=== PATIENT | female | born 1980 | race Caucasian/White ===

== ENCOUNTER 2018-06-12 07:34 | Emergency (ER) | payer OTHER, SELFPAY ==
--- NOTE | 2018-06-12 08:52 | RAD ---
3 VIEWS LEFT FOOT: Date: 06/12/18 HISTORY: Left foot pain. FINDINGS: There is a tiny osseous density seen just anterior to the anterior process of the talus. However, thi s tiny osseous density does appear to be corticated and is not thought to represent an acute avulsion injury. No additional fracture is seen and there is no dislocation. Lisfranc joint is normally align ed. Accessory center of ossification is seen adjacent to the cuboid bone. IMPRESSION: No acute osseous abnormality. POS: ANTONIO
--- NOTE | 2018-06-12 08:54 | RAD ---
3 VIEWS LEFT ANKLE: Date: 06/12/18 HISTORY: Left foot and ankle pain. FINDINGS: As noted on views of the foot, there is a tiny osseous density dorsal to the anterior process of the talus, which does appear corticated and may represent a remote avulsion-type injury. There is no evid ence of an acute fracture or dislocation. The ankle mortise is congruent. No other osseous abnormalit y. IMPRESSION: No acute osseous abnormality of the left ankle. POS: ZHAO
== END 2018-06-12 08:53 | disposition home or self-care (01) ==
LOC: ERS 07:34
DX: M79.605 Pain in left leg (principal); F32.9 Major depressive disorder, single episode, unspecified; Z79.899 Other long term (current) drug therapy; Z87.891 Personal history of nicotine dependence

== ENCOUNTER 2018-12-07 11:27 | Emergency (ER) | payer SELFPAY ==
[2018-12-07 11:52] LABS: #Eosinphils 0.1 thou/uL (0.0-0.7); #Lymphocytes 2.8 thou/uL (1.20-3.40); #Monocytes 0.4 thou/uL (0.11-0.59); #Neutrophils 3.6 thou/uL (1.40-6.50); %Basophils 0.6 % (0.0-1.0); %Eosinophils 1.1 % (0.0-10.0); %Lymphocytes 40.1 % (21.0-51.0); %Monocytes 5.8 % (0.0-10.0); %Neutrophils 52.3 % (42.0-75.0); Hemoglobin 15.8 g/dL (12.0-16.0); Mean Corpuscular HGB CONC 35.1 g/dL (32.0-36.0); Mean Corpuscular Hemoglobin 32.5 pg (27.0-31.0); Mean Corpuscular Volume 92.5 fL (78.0-98.0); Mean Platelet Volume 7.9 fL (7.4-10.4); Platelet Count 284 thou/uL (130-400); Red Blood Cell (RBC) Count 4.87 mill/uL (4.20-5.40); White Blood Cell (WBC) Count 6.9 thou/uL (4.8-10.8)
--- NOTE | 2018-12-07 11:57 | RAD ---
AP view chest. HISTORY: Chest pain. AP view chest is obtained on 12/07/2018. The lungs are well aerated. No evidence of active intrathoracic disease seen. No evidence of effusion s, pneumonia or pneumothorax seen IMPRESSION: Unremarkable AP view chest.
[2018-12-07 12:18] LABS: ALT (SGPT) 13 U/L (8-55); AST (SGOT) 17 U/L (5-34); Albumin 4.6 g/dL (3.5-5.0); Alkaline Phosphatase 77 U/L (40-150); Anion Gap 12 mmol/L (10-20); BUN (Urea Nitrogen) 10 mg/dL (7.0-18.7); Bilirubin, Total 0.7 mg/dL (0.2-1.2); Calc. Creatinine Clearance 0 mL/min (70-130); Carbon Dioxide 24 mmol/L (22-29); Chloride 104 mmol/L (98-107); Estimated GFR-MDRD 54; Globulin 2.8 g/dL (2.4-3.5); Glucose 81 mg/dL (70-105); Lipase 21 U/L (8-78); Protein, Total 7.4 g/dL (6.0-8.3); Sodium 136 mmol/L (136-145)
[2018-12-07] MEDS ORDERED: Lorazepam 2 MG/ML VIAL ONE (12:26)
== END 2018-12-07 13:25 | disposition home or self-care (01) ==
LOC: ERS 11:27
DX: R07.89 Other chest pain (principal); I10 Essential (primary) hypertension; K21.9 Gastro-esophageal reflux disease without esophagitis; Z87.891 Personal history of nicotine dependence; Z79.899 Other long term (current) drug therapy
CPT/HCPCS: 36415; 71045; 80053; 83605; 83690; 84484; 85025; 93005; 96374; J2060

== ENCOUNTER 2022-01-18 17:15 | Emergency (ER) | payer SELFPAY ==
[2022-01-18] MEDS ORDERED: Famotidine/PF 20 mg/2ml Vial ONE (17:37)
[2022-01-18] MEDS ORDERED: diphenhydrAMINE 50 MG/ML VIAL ONE (17:37)
[2022-01-18 18:05] LABS: Hemoglobin 15.2 g/dL (12.0-16.0); Mean Corpuscular HGB CONC 33.5 g/dL (32.0-36.0); Mean Corpuscular Hemoglobin 32.2 pg (27.0-31.0); Mean Corpuscular Volume 96.1 fL (78.0-98.0); Platelet Count 270 thou/uL (130-400); RBC Distribution Width 12.2 % (11.5-14.5); Red Blood Cell (RBC) Count 4.73 mill/uL (4.20-5.40); White Blood Cell (WBC) Count 7.7 thou/uL (4.8-10.8)
[2022-01-18 18:15] LABS: ALT (SGPT) 10 U/L (8-55); AST (SGOT) 19 U/L (5-34); Alkaline Phosphatase 71 U/L (40-110); Anion Gap 15 mmol/L (10-20); BUN (Urea Nitrogen) 12 mg/dL (7.0-18.7); Bilirubin, Total 0.6 mg/dL (0.2-1.2); Calc. Creatinine Clearance 0 mL/min (70-130); Carbon Dioxide 23 mmol/L (22-29); Chloride 103 mmol/L (98-107); Globulin 2.6 g/dL (2.4-3.5); Glucose 90 mg/dL (70-105); Potassium 3.8 mmol/L (3.5-5.1); Protein, Total 6.6 g/dL (6.0-8.3); Sodium 137 mmol/L (136-145)
[2022-01-18 18:39] LABS: Eosinophils 2 % (0-10); Lymphocytes 23 % (21-51); MDiff Complete? YES; Monocytes 4 % (0-10); Neutrophil 69 % (42-75); Platelet Morphology Comment Appears Adequate; Polychromasia SLIGHT = 2-3 cells (100X) (0-2/hpf); Reactive Lymphocytes 2 % (0-10)
== END 2022-01-18 19:16 | disposition home or self-care (01) ==
LOC: ERS 17:15
DX: T63.441A Toxic effect of venom of bees, accidental (unintentional), initial encounter (principal); R07.89 Other chest pain; Z87.891 Personal history of nicotine dependence; I10 Essential (primary) hypertension; Z79.899 Other long term (current) drug therapy; K21.9 Gastro-esophageal reflux disease without esophagitis
CPT/HCPCS: 36415; 71045; 80053; 84484; 85025; 93005; 96374; 96375; J1200; S0028

== ENCOUNTER 2022-06-01 16:09 | Emergency (ER) | payer SELFPAY ==
[2022-06-01] MEDS ORDERED: Ketorolac Tromethamine 30 MG/ML VIAL ONE (16:37)
== END 2022-06-01 17:28 | disposition home or self-care (01) ==
LOC: ERS 16:09
DX: S63.501A Unspecified sprain of right wrist, initial encounter (principal); S60.221A Contusion of right hand, initial encounter; I10 Essential (primary) hypertension; K21.9 Gastro-esophageal reflux disease without esophagitis; W22.8XXA Striking against or struck by other objects, initial encounter; Z87.891 Personal history of nicotine dependence; Z79.899 Other long term (current) drug therapy
CPT/HCPCS: 96372; J1885

== ENCOUNTER 2023-06-26 04:33 | Emergency (ER) | payer SELFPAY ==
[2023-06-26] MEDS ORDERED: Ondansetron PF 4 MG/2 ML Vial ONE (05:35)
[2023-06-26] MEDS ORDERED: Ketorolac Tromethamine 30 MG/ML VIAL ONE (05:35)
[2023-06-26 06:14] LABS: Bilirubin Negative (Negative); Blood, Urine 2+ (Negative); CAUTI Indications for Culture Pelvic or flank pain; Clarity Clear (Clear); Glucose, Urine (Dipstick) Normal (Negative); Ketone, Urine Negative (Negative); Leukocyte Negative Leu/uL (Negative); Nitrite Negative (Negative); Protein, Urine (Dipstick) Negative (Neg-Trace); RBC/HPF 0-3 HPF (0-3); Specific Gravity, Urine 1.037 (1.002-1.036); Squamous Epithelial 0-3 HPF (0-3); Urobilinogen Normal mg/dL (Less than 2); pH, Urine 7.5 (5.0-9.0)
[2023-06-26 06:15] LABS: #Monocytes 0.5 thou/uL (0.11-0.59); #Neutrophils 8.7 thou/uL (1.40-6.50); %Basophils 0.3 % (0.0-1.0); %Eosinophils 0.3 % (0.0-10.0); %Lymphocytes 10.1 % (21.0-51.0); %Monocytes 4.3 % (0.0-10.0); %Neutrophils 84.3 % (42.0-75.0); Hematocrit 41.5 % (36.0-47.0); Hemoglobin 14.4 g/dL (12.0-16.0); Mean Corpuscular HGB CONC 34.7 g/dL (32.0-36.0); Mean Corpuscular Hemoglobin 33.6 pg (27.0-31.0); Mean Corpuscular Volume 96.7 fl (78.0-98.0); Mean Platelet Volume 9.7 fL (7.4-10.4); Platelet Count 270 10x3/uL (130-400); RBC Distribution Width 12.7 % (11.5-14.5); Red Blood Cell (RBC) Count 4.29 mill/uL (4.20-5.40); White Blood Cell (WBC) Count 10.4 10x3/uL (4.8-10.8)
[2023-06-26 06:15] LABS: Bacteria/HPF 1+ HPF (None Seen)
[2023-06-26 06:16] LABS: Urine Culture Reflex No No
[2023-06-26 06:43] LABS: Albumin 3.8 g/dL (3.5-5.0)
[2023-06-26 06:45] LABS: Calcium 9.1 mg/dL (7.8-10.44); Chloride 105 mmol/L (98-107); Sodium 137 mmol/L (136-145)
[2023-06-26 06:46] LABS: Globulin 3.1 g/dL (2.4-3.5); Glucose 117 mg/dL (70-105); Protein, Total 6.9 g/dL (6.0-8.3)
[2023-06-26 06:47] LABS: Carbon Dioxide 15 mmol/L (22-29)
[2023-06-26 06:48] LABS: Bilirubin, Total 0.7 mg/dL (0.2-1.2)
[2023-06-26 06:49] LABS: Alkaline Phosphatase 68 U/L (40-110); Calc. Creatinine Clearance 0 mL/min (70-130); Estimated GFR 45
[2023-06-26 06:50] LABS: BUN (Urea Nitrogen) 12 mg/dL (7.0-18.7)
[2023-06-26 06:51] LABS: AST (SGOT) 29 U/L (5-34)
[2023-06-26 06:52] LABS: ALT (SGPT) 29 U/L (8-55); Lipase 23 U/L (8-78)
[2023-06-26 09:52] LABS: Anion Gap 21 mmol/L (10-20)
[2023-06-26] MEDS ORDERED: Iopamidol 370 76% 100 ML VIAL ONE (10:26)
== END 2023-06-26 07:25 | disposition home or self-care (01) ==
LOC: ERS 04:33
DX: N13.2 Hydronephrosis with renal and ureteral calculous obstruction (principal); I10 Essential (primary) hypertension; Z87.891 Personal history of nicotine dependence
CPT/HCPCS: 36415; 74177; 80053; 81001; 83690; 85025; 96374; 96375; J1885; J2405; Q9967